=== PATIENT | male | born 1970 | race Caucasian/White ===

== ENCOUNTER 2016-09-10 11:47 | Emergency (ER) | payer BC ==
[2016-09-10 12:07] VITALS: BP 133/83
[2016-09-10] MEDS ORDERED: Amoxicillin/Clavulanate TAB* 875 MG PO ONE (12:31)
[2016-09-10] MEDS ORDERED: Tetan/Diph/Pertus SYR(Tdap)* 0.5 ML SYR(BOOSTRIX) use SYR IM ONE (13:17)
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
== END 2016-09-10 14:07 | disposition home or self-care (01) ==
LOC: ED 11:47
DX: S61.052A Open bite of left thumb without damage to nail, initial encounter (principal); W54.0XXA Bitten by dog, initial encounter; Y92.9 Unspecified place or not applicable; Z87.891 Personal history of nicotine dependence; Z23 Encounter for immunization
CPT/HCPCS: 90471; 99282; A9270-GY

== ENCOUNTER 2017-08-18 10:53 | Emergency (ER) | payer BC ==
[2017-08-18] MEDS ORDERED: Penicillin VK TAB* 250 MG PO ONE (12:34)
--- NOTE | 2017-08-18 12:41 | ED ---
Throat Pain/Nasal Congestion - HPI Summary HPI Summary: Patient presents to the ED with left lower tooth pain, erythema and swelling. The tooth is necrosed and broken in 3 places. He states he often will experience abscesses around the tooth and is looking for a dentist to get the tooth extracted. Denies any fevers, sweats, chills. He has oxycodone at home daily for chronic pain. He is here requesting an antibiotic. He believes he is able to see the dentist next week on Monday. Patient is a smoker. He has been using salt water rinses. Denies dental care for several years, has several fractured teeth and most likely will need all of them pulled per patient. Denies trismus, drooling, dysphagia, odynophagia, ear pain, headache. - History of Current Complaint Chief Complaint: EDDentalPain Time Seen by Provider: 08/18/17 11:21 Hx Obtained From: Patient Onset/Duration: Sudden Onset Severity: Moderate Associated Signs And Symptoms: Positive: Negative - Epiglottits Risk Factors Epiglottis Risk Factors: Negative - Allergies/Home Medications Allergies/Adverse Reactions: Allergies Allergy/AdvReac Type Severity Reaction Status Date / Time lipitor Allergy Muscle Ache Uncoded 09/10/16 12:07 PMH/Surg Hx/FS Hx/Imm Hx Previously Healthy: Yes - Surgical History Surgery Procedure, Year, and Place: appendectomy - Immunization History Hx Pertussis Vaccination: No Immunizations Up to Date: Yes Infectious Disease History: No Infectious Disease History: Denies: Traveled Outside the [place] in Last 30 Days - Family History Known Family History: Positive: None - Social History Occupation: Employed Full-time Lives: With Family Alcohol Use: Rare Hx Substance Use: No Substance Use Type: Reports: None Hx Tobacco Use: Yes Smoking Status (MU): Light Every Day Tobacco Smoker Review of Systems Constitutional: Negative Negative: Fever, Chills, Fatigue Eyes: Negative Positive: Dental Pain Cardiovascular: Negative Respiratory: Negative Musculoskeletal: Negative Skin: Negative Neurological: Negative All Other Systems Reviewed And Are Negative: Yes Physical Exam Triage Information Reviewed: Yes Vital Signs On Initial Exam: Initial Vitals Temp Pulse Resp BP Pulse Ox 98.1 F 96 17 130/90 100 08/18/17 11:19 08/18/17 11:19 08/18/17 11:19 08/18/17 11:19 08/18/17 11:19 Completion Of Physical Exam Limited Due To: Dementia Appearance: Positive: Well-Appearing, Well-Nourished Skin: Positive: Warm, Skin Color Reflects Adequate Perfusion Head/Face: Positive: Normal Head/Face Inspection Eyes: Positive: EOMI, MARY, Conjunctiva Clear Dental: Positive: Dental Fracture @ - #20 and #21 Neck: Positive: Supple, No Lymphadenopathy Respiratory/Lung Sounds: Positive: Clear to Auscultation, Breath Sounds Present Cardiovascular: Positive: RRR, Pulses are Symmetrical in both Upper and Lower Extremities Neurological: Positive: Normal, Sensory/Motor Intact, Speech Normal Psychiatric: Positive: Affect/Mood Appropriate AVPU Assessment: Alert Diagnostics - Vital Signs Vital Signs Temp Pulse Resp BP Pulse Ox 08/18/17 11:19 98.1 F 96 17 130/90 100 - Laboratory Lab Statement: Any lab studies that have been ordered have been reviewed, and results considered in the medical decision making process. EENT Course/Dx - Course Course Of Treatment: During the course treatment, the patient is evaluated for left lower jaw pain, erythema and possible abscess to the tooth #21. He has experienced abscesses in this tooth before and is making appointments with dentist for extraction. Denies fevers, sweats, chills or other systemic illness. He has oxycodone at home for chronic pain. He is a smoker. Advised him to quit. Encouraged salt water rinses. I have given him Keflex 500 mg 4 times daily 7 days for possible dental abscess. Denies trismus, dysphagia, odynophagia, ear pain. - Differential Diagnoses Differential Diagnoses: Dental Abscess, Dental Caries - Diagnoses Provider Diagnoses: Dental abscess Discharge - Discharge Plan Condition: Stable Disposition: HOME Prescriptions: Penicillin VK 500 MG TAB(NF) [Penicillin VK 500 mg Tab(NF)] 500 mg PO QID #28 tab MDD 4 Patient Education Materials: Dental Abscess (ED) Referrals: Savage Sage MD [Primary Care Provider] - Additional Instructions: Please follow-up with a dentist as soon as possible Continue with her at home pain medications Penicillin 4 times daily 7 days If you develop any worsening redness, warmth to the cheek, or inability to open your jaw, return to the ED immediately Images - Images Dental: 1 - Dental fracture with surrounding erythema
[2017-08-18 12:42] VITALS: BP 141/89
== END 2017-08-18 12:44 | disposition home or self-care (01) ==
LOC: ED 10:53
DX: K04.7 Periapical abscess without sinus (principal); F17.200 Nicotine dependence, unspecified, uncomplicated; Z88.8 Allergy status to other drugs, medicaments and biological substances
CPT/HCPCS: 99282; A9270-GY